=== PATIENT | female | born 1935 | race African-American/Black ===

== ENCOUNTER → 2017-01-20 13:06 | Outpatient (CLI) | payer MEDICARE ==
[2014-03-21 10:50] VITALS: BMI 22.0
[~2017-01-20 13:06] MED LIST: ALDACTONE25 MG PO; CENTRUM COMPLE1 EACH PO; CIPRO500 MG PO; CLARITIN 10 MG10 MG; COREG12.5 MG PO; ECOTRIN81 MG PO; FISH OIL 1,0001 CA1 PO; LASIX20 MG PO; LISINOPRIL5 MG PO; PLAVIX75 MG PO; VITAMIN B COMPL1 TAB PO
== END | disposition home or self-care (01) ==
LOC: D.CT 13:06
DX: R43.0 Anosmia (principal)

== ENCOUNTER 2020-01-11 16:29 | Emergency (ER) | payer OTHER ==
[~2020-01-11] VITALS: Ht 157.5 cm; Wt 52.3 kg
[2020-01-11 16:33] VITALS: BP 153/93; Ht 157.5 cm; Wt 52.3 kg
[2020-01-11 16:57] LABS: BASOPHILS 0.2 % (0-2); EOSINOPHILS 1.7 % (0-7); HEMATOCRIT 40.1 % (36.0-48.0); HEMOGLOBIN 13.4 g/dL (12-16); LYMPHOCYTES 42.9 % (15-50); MCH 30.7 pg (26.0-34.0); MCHC 33.4 g/dL (31.0-37.0); MCV 91.8 fL (80.0-100.0); MONOCYTES 5.1 % (2-11); NEUTROPHILS 50.1 % (40-80); PLATELET COUNT 197 10x3/uL (130-400); RBC 4.37 10x6/uL (4.00-5.40); RDW 15.6 % (11.5-14.5); WBC 5.9 10x3/uL (4.8-10.8)
[2020-01-11 17:08] LABS: ANION GAP 9.8 mmol/L (8-16); CALCIUM 8.8 mg/dL (8.5-10.1); CARBON DIOXIDE 29.6 mmol/L (21.0-32.0); CREATININE - SERUM 1.3 mg/dL (0.6-1.3); POTASSIUM - SERUM 4.4 mmol/L (3.5-5.1)
[2020-01-11 17:13] LABS: ALBUMIN 3.4 g/dL (3.4-5.0); BILIRUBIN - TOTAL 0.39 mg/dL (0.2-1.3); PROTEIN - SERUM 6.9 g/dL (6.4-8.2)
[2020-01-11] MEDS ORDERED: MECLIZINE HCL25 MG PO (17:26)
== END 2020-01-11 18:12 | disposition home or self-care (01) ==
LOC: D.ER 16:29
PROVIDERS: Emergency Medicine
DX: R42 Dizziness and giddiness (principal); I10 Essential (primary) hypertension; I25.119 Atherosclerotic heart disease of native coronary artery with unspecified angina pectoris; Z72.0 Tobacco use

== ENCOUNTER 2020-03-18 15:25 | Emergency (ER) | payer OTHER ==
[~2020-03-18] VITALS: Ht 157.5 cm; Wt 46.8 kg
[~2020-03-18 15:25] MED LIST changes: +MECLIZINE HCL25 MG PO
[2020-03-18 15:50] VITALS: Ht 157.5 cm; Wt 46.8 kg
[2020-03-18 18:41] LABS: BASOPHILS 0.1 % (0-2); EOSINOPHILS 1.6 % (0-7); HEMATOCRIT 43.1 % (36.0-48.0); HEMOGLOBIN 14.1 g/dL (12-16); IMMATURE GRANULOCYTES 0.1 % (0-5); LYMPHOCYTES 38.2 % (15-50); MCH 30.5 pg (26.0-34.0); MCHC 32.7 g/dL (31.0-37.0); MCV 93.3 fL (80.0-100.0); MEAN PLATELET VOLUME 9.3 fL (7.4-10.4); MONOCYTES 4.5 % (2-11); NEUTROPHILS 55.5 % (40-80); PLATELET COUNT 212 10x3/uL (130-400); RBC 4.62 10x6/uL (4.00-5.40); RDW 15.2 % (11.5-14.5); WBC 6.9 10x3/uL (4.8-10.8)
[2020-03-18 18:47] LABS: CALC OSMOLALITY 282 mosm/kg (275-300); CALCIUM 8.8 mg/dL (8.5-10.1); CARBON DIOXIDE 28.9 mmol/L (21.0-32.0); CHLORIDE - SERUM 106 mmol/L (98-107); CREATININE - SERUM 1.1 mg/dL (0.6-1.3); GLUCOSE 93 mg/dL (74-106); POTASSIUM - SERUM 3.5 mmol/L (3.5-5.1); SODIUM 142 mmol/L (136-145); UREA NITROGEN 12 mg/dL (7-18); eGFR NON AFRICAN AMERICAN 50 mL/min (90-120)
[2020-03-18 19:04] LABS: ALBUMIN 3.7 g/dL (3.4-5.0); ALKALINE PHOSPHATASE 54 U/L (30-120); ALT (SGPT) 15 U/L (10-68); BILIRUBIN - TOTAL 0.55 mg/dL (0.2-1.3); CKMB 0.7 U/L (0.0-3.6); CREATINE KINASE 56 UL (21-215); MAGNESIUM - SERUM 2.4 mg/dL (1.8-2.4); PROTEIN - SERUM 7.1 g/dL (6.4-8.2)
[2020-03-18 19:15] LABS: TROPONIN-I < 0.017 ng/mL (0.000-0.060)
[2020-03-18 19:42] LABS: BILIRUBIN NEGATIVE (NEGATIVE); GLUCOSE NEGATIVE (NEGATIVE); KETONE NEGATIVE (NEGATIVE); NITRITE NEGATIVE (NEGATIVE); UROBILINOGEN NORMAL (NORMAL)
[2020-03-18 19:44] LABS: BACTERIA MANY /hpf (NEGATIVE); EPITHELIAL CELLS 0-5 /hpf (0-5); WHITE CELLS - URINE 0-5 /hpf (NEGATIVE)
[2020-03-18] MEDS ORDERED: MACROBID100 MG PO (20:09)
[2020-03-18 20:34] VITALS: BP 122/73
== END 2020-03-18 20:34 | disposition home or self-care (01) ==
LOC: D.ER 15:25
PROVIDERS: Family Medicine
DX: N39.0 Urinary tract infection, site not specified (principal); R42 Dizziness and giddiness

== ENCOUNTER 2020-06-15 11:10 | Emergency (ER) | payer OTHER ==
[~2020-06-15] VITALS: Ht 157.5 cm; Wt 47.7 kg
[~2020-06-15 11:10] MED LIST changes: +MACROBID100 MG PO
[2020-06-15 11:14] VITALS: Ht 157.5 cm; Wt 47.7 kg
[2020-06-15 11:48] LABS: BASOPHILS 0.2 % (0-2); EOSINOPHILS 2.5 % (0-7); HEMATOCRIT 38.8 % (36.0-48.0); HEMOGLOBIN 12.6 g/dL (12-16); LYMPHOCYTES 37.8 % (15-50); MCH 30.1 pg (26.0-34.0); MCHC 32.5 g/dL (31.0-37.0); MCV 92.8 fL (80.0-100.0); MEAN PLATELET VOLUME 9.4 fL (7.4-10.4); MONOCYTES 4.4 % (2-11); NEUTROPHILS 55.1 % (40-80); PLATELET COUNT 215 10x3/uL (130-400); RBC 4.18 10x6/uL (4.00-5.40); RDW 15.2 % (11.5-14.5); WBC 4.8 10x3/uL (4.8-10.8)
[2020-06-15 12:07] LABS: APTT 27.5 SECONDS (22.8-39.4); INR 0.91 (0.85-1.17); PROTIME 12.2 SECONDS (11.6-15.0)
[2020-06-15 12:25] LABS: CALC OSMOLALITY 279 mosm/kg (275-300); CARBON DIOXIDE 29.8 mmol/L (21.0-32.0); CHLORIDE - SERUM 104 mmol/L (98-107); CREATININE - SERUM 1.2 mg/dL (0.6-1.3); GLUCOSE 125 mg/dL (74-106); POTASSIUM - SERUM 3.6 mmol/L (3.5-5.1); SODIUM 139 mmol/L (136-145); UREA NITROGEN 15 mg/dL (7-18); eGFR NON AFRICAN AMERICAN 45 mL/min (90-120)
[2020-06-15 12:42] LABS: ALBUMIN 3.4 g/dL (3.4-5.0); ALKALINE PHOSPHATASE 49 U/L (30-120); ALT (SGPT) 14 U/L (10-68); BILIRUBIN - TOTAL 0.57 mg/dL (0.2-1.3); CKMB 0.5 U/L (0.0-3.6); CREATINE KINASE 51 UL (21-215); PROTEIN - SERUM 6.2 g/dL (6.4-8.2); TROPONIN-I < 0.017 ng/mL (0.000-0.060)
[2020-06-15 13:03] LABS: BILIRUBIN NEGATIVE (NEGATIVE); GLUCOSE 500 mg/dL (NEGATIVE); KETONE NEGATIVE (NEGATIVE); NITRITE NEGATIVE (NEGATIVE); UROBILINOGEN NORMAL (NORMAL)
[2020-06-15] MEDS ORDERED: MECLIZINE HCL25 MG PO (13:07)
[2020-06-15 14:04] VITALS: BP 161/74
== END 2020-06-15 14:04 | disposition home or self-care (01) ==
LOC: D.ER 11:10
PROVIDERS: Family Medicine
DX: R42 Dizziness and giddiness (principal); I95.1 Orthostatic hypotension

== ENCOUNTER 2021-03-23 10:19 | Observation (INO) | payer OTHER ==
[~2021-03-23] VITALS: Ht 157.5 cm; Wt 40.8 kg
[2021-03-23 10:28] VITALS: BP 119/60
--- NOTE | 2021-03-23 10:31 | NUR ---
BGL OF 88
[2021-03-23 10:37] LABS: BASOPHILS 0.5 % (0-2); EOSINOPHILS 2.1 % (0-7); HEMATOCRIT 41.3 % (36.0-48.0); HEMOGLOBIN 13.7 g/dL (12-16); IMMATURE GRANULOCYTES 0.2 % (0-5); LYMPHOCYTE ABS# 1.59 10x3/uL (1.18-3.74); LYMPHOCYTES 37.1 % (15-50); MCH 30.4 pg (26.0-34.0); MCHC 33.2 g/dL (31.0-37.0); MCV 91.8 fL (80.0-100.0); MEAN PLATELET VOLUME 9.6 fL (7.4-10.4); MONOCYTES 7.5 % (2-11); NEUTROPHIL ABS# 2.26 10x3/uL (1.56-6.13); NEUTROPHILS 52.6 % (40-80); PLATELET COUNT 196 10x3/uL (130-400); RDW 15.1 % (11.5-14.5); WBC 4.3 10x3/uL (4.8-10.8)
[2021-03-23 11:01] LABS: CALC OSMOLALITY 283 mosm/kg (275-300); CARBON DIOXIDE 27.8 mmol/L (21.0-32.0); CHLORIDE - SERUM 104 mmol/L (98-107); CREATININE - SERUM 1.3 mg/dL (0.6-1.3); GLUCOSE 91 mg/dL (74-106); POTASSIUM - SERUM 3.4 mmol/L (3.5-5.1); SODIUM 142 mmol/L (136-145); UREA NITROGEN 16 mg/dL (7-18); eGFR NON AFRICAN AMERICAN 41 mL/min (90-120)
[2021-03-23 11:06] VITALS: BP 147/60
--- NOTE | 2021-03-23 11:06 | NUR ---
ASSITED UP TO BSC, URINE SPEC COLLECTED, LABELED AT BS AND SENT TO LAB
[2021-03-23 11:14] LABS: BILIRUBIN NEGATIVE (NEGATIVE); KETONE NEGATIVE (NEGATIVE); NITRITE NEGATIVE (NEGATIVE); UROBILINOGEN NORMAL mg/dL (< 2)
[2021-03-23 11:15] LABS: BACTERIA MODERATE HPF (NONE SEEN); SQUAMOUS EPITHELIAL 0-5 HPF (0-4)
[2021-03-23 11:16] LABS: ALBUMIN 3.5 g/dL (3.4-5.0); ALKALINE PHOSPHATASE 61 U/L (30-120); ALT (SGPT) 18 U/L (10-68); CKMB 1.1 U/L (0.0-3.6); CREATINE KINASE 78 UL (21-215); MAGNESIUM - SERUM 2.3 mg/dL (1.8-2.4); PROTEIN - SERUM 6.8 g/dL (6.4-8.2); TROPONIN-I < 0.017 ng/mL (0.000-0.060)
[2021-03-23 11:17] LABS: APTT 26.9 SECONDS (22.8-39.4); INR 0.99 (0.85-1.17); PROTIME 12.1 SECONDS (11.6-15.0)
[2021-03-23 13:00] VITALS: BP 132/75
[2021-03-23 13:52] LABS: CKMB 1.8 U/L (0.0-3.6); CREATINE KINASE 75 UL (21-215)
[2021-03-23 14:02] LABS: TROPONIN-I < 0.017 ng/mL (0.000-0.060)
--- NOTE | 2021-03-23 14:14 | NUR ---
PT REPORT GIVEN TO SYL ALONSO WITH VERBAL ACKNOWLEDGEMENT OBTAINED.
--- NOTE | 2021-03-23 14:16 | NUR ---
RECEIVED REPORT FROM ED, PATIENT TO UNIT SOON.
--- NOTE | 2021-03-23 14:26 | NUR ---
PATIENT ARRIVED TO UNIT AT THIS TIME VIA WHEELCHAIR AND ADMITTED TO ROOM 2125.
[2021-03-23 14:47] VITALS: BP 132/73; BMI 16.5
[2021-03-23 14:49] VITALS: BP 135/79
--- NOTE | 2021-03-23 15:27 | NUR ---
PATIENT RESTING COMFORTABLY IN BED WITH ATTENTION TOWARD TELEVISION. ECG COMPLETE AND PLACED ON CHART. NO DISTRESS.
--- NOTE | 2021-03-23 16:42 | NUR ---
BILATERAL SCDs APPLIED LOWER EXTREMITIES. TELEMETRY APPLIED.
--- NOTE | 2021-03-23 16:54 | NUR ---
PATIENTS GRANDDAUGHTER CALLED TO CHECK ON HER, UPDATE PROVIDED. PATIENT RESTING IN BED WITH EYES CLOSED. NO DISTRESS.
[2021-03-23 18:00] LABS: CKMB 1.1 U/L (0.0-3.6); CREATINE KINASE 67 UL (21-215)
[2021-03-23 18:02] LABS: TROPONIN-I < 0.017 ng/mL (0.000-0.060)
--- NOTE | 2021-03-23 18:39 | NUR ---
MULTIPLE FAMILY MEMBERS OF THE PATIENT ARE CALLING FOR UPDATE. UPDATE WAS PROVIDED TO THE GRANDDAUGHTER EARLIER. NO CHANGES HAVE OCCURED SINCE ADMISSION.
--- NOTE | 2021-03-23 18:40 | NUR ---
PATIENTS GRANDDAUGHTER JOSIE CALLED TO MAKE SURE HER CONTACT INFO IS CORRECT. HER CORRECT PHONE NUMBER IS [phone]. SHE WOULD LIKE TO BE CALLED IF ANY CHANGES OCCUR THROUGH THE NIGHT.
[2021-03-23 20:00] VITALS: BP 123/78
[2021-03-23 23:46] LABS: CREATINE KINASE 66 UL (21-215)
[2021-03-23 23:52] LABS: TROPONIN-I < 0.017 ng/mL (0.000-0.060)
[2021-03-24] VITALS: BP 154/79
--- NOTE | 2021-03-24 03:06 | NUR ---
I have reviewed this patient and I concur with the Shift Assessment completed by the Licensed Practical Nurse today this shift.
[2021-03-24 05:50] LABS: BASOPHILS 0.2 % (0-2); EOSINOPHILS 3.1 % (0-7); HEMATOCRIT 35.9 % (36.0-48.0); HEMOGLOBIN 11.9 g/dL (12-16); LYMPHOCYTE ABS# 1.91 10x3/uL (1.18-3.74); LYMPHOCYTES 41.9 % (15-50); MCH 30.4 pg (26.0-34.0); MCHC 33.1 g/dL (31.0-37.0); MCV 91.6 fL (80.0-100.0); MEAN PLATELET VOLUME 9.7 fL (7.4-10.4); MONOCYTES 5.7 % (2-11); NEUTROPHIL ABS# 2.24 10x3/uL (1.56-6.13); NEUTROPHILS 49.1 % (40-80); PLATELET COUNT 201 10x3/uL (130-400); RBC 3.92 10x6/uL (4.00-5.40); RDW 15.2 % (11.5-14.5); WBC 4.6 10x3/uL (4.8-10.8)
[2021-03-24 06:29] LABS: ALBUMIN 2.8 g/dL (3.4-5.0); ALKALINE PHOSPHATASE 47 U/L (30-120); BILIRUBIN - TOTAL 0.42 mg/dL (0.2-1.3); CALC OSMOLALITY 279 mosm/kg (275-300); CARBON DIOXIDE 25.3 mmol/L (21.0-32.0); CHLORIDE - SERUM 109 mmol/L (98-107); CKMB 0.9 U/L (0.0-3.6); CREATINE KINASE 57 UL (21-215); CREATININE - SERUM 1.1 mg/dL (0.6-1.3); GLUCOSE 85 mg/dL (74-106); POTASSIUM - SERUM 3.8 mmol/L (3.5-5.1); PROTEIN - SERUM 5.8 g/dL (6.4-8.2); SODIUM 141 mmol/L (136-145); TROPONIN-I < 0.017 ng/mL (0.000-0.060); UREA NITROGEN 12 mg/dL (7-18); eGFR NON AFRICAN AMERICAN 50 mL/min (90-120)
[2021-03-24 06:30] LABS: ALT (SGPT) 13 U/L (10-68)
--- NOTE | 2021-03-24 07:13 | NUR ---
RECEIVE SHIFT REPORT. RESTING IN BED WITH TV ON. DENIES ANY NEEDS AT THIS TIME. WILL CONTINUE POC AND SAFETY PRECAUTIONS.
[2021-03-24 08:23] VITALS: BP 133/76
[2021-03-24 10:59] LABS: CREATINE KINASE 72 UL (21-215); TROPONIN-I < 0.017 ng/mL (0.000-0.060)
[2021-03-24 12:22] VITALS: BP 148/78
[2021-03-24 16:04] VITALS: BP 148/81
[2021-03-24 20:56] VITALS: BP 145/73
[2021-03-25 01:48] VITALS: BP 126/64
--- NOTE | 2021-03-25 03:19 | NUR ---
I have reviewed this patient and I concur with the Shift Assessment completed by the Licensed Practical Nurse today this shift.
[2021-03-25 05:23] LABS: BASOPHILS 0.2 % (0-2); EOSINOPHILS 2.5 % (0-7); HEMATOCRIT 37.5 % (36.0-48.0); HEMOGLOBIN 12.4 g/dL (12-16); IMMATURE GRANULOCYTES 0.2 % (0-5); LYMPHOCYTE ABS# 2.01 10x3/uL (1.18-3.74); LYMPHOCYTES 42.4 % (15-50); MCH 30.3 pg (26.0-34.0); MCHC 33.1 g/dL (31.0-37.0); MCV 91.7 fL (80.0-100.0); MEAN PLATELET VOLUME 10.3 fL (7.4-10.4); MONOCYTES 5.7 % (2-11); NEUTROPHIL ABS# 2.32 10x3/uL (1.56-6.13); PLATELET COUNT 205 10x3/uL (130-400); RBC 4.09 10x6/uL (4.00-5.40); RDW 15.1 % (11.5-14.5); WBC 4.7 10x3/uL (4.8-10.8)
[2021-03-25 05:26] VITALS: BP 116/67
[2021-03-25 05:43] LABS: ALBUMIN 2.9 g/dL (3.4-5.0); ANION GAP 11.6 mmol/L (8-16); BILIRUBIN - TOTAL 0.31 mg/dL (0.2-1.3); CALCIUM 8.5 mg/dL (8.5-10.1); CARBON DIOXIDE 25.4 mmol/L (21.0-32.0); CREATININE - SERUM 1.1 mg/dL (0.6-1.3); MAGNESIUM - SERUM 2.1 mg/dL (1.8-2.4); PROTEIN - SERUM 6.1 g/dL (6.4-8.2)
--- NOTE | 2021-03-25 07:10 | NUR ---
RECEIVE SHIFT REPORT. RESTING IN BED WITH TV ON. DENIES ANY NEEDS AT THIS TIME. STATES SHE WOULD LIKE TO GO HOME. WILL CONTINUE POC AND SAFETY PRECAUTIONS. CALL LIGHT IN REACH.
[2021-03-25 07:32] VITALS: BP 135/70
[2021-03-25 11:37] VITALS: BP 128/68
[2021-03-25 13:40] VITALS: Ht 157.5 cm; Wt 40.8 kg
[2021-03-25 15:15] VITALS: BP 109/59
--- NOTE | 2021-03-25 19:54 | NUR ---
PT OUT IN [place], STATES THAT SHE IS LOOKING FOR THE BABY, EXPLAINED TO PT THAT SHE IS AT THE HOSPITAL AND THAT THERE IS NO BABY IN THE NEXT ROOM. ASSISTED PT BACK TO HER ROOM. IV TO RIGHT FOREARM OUT, TIP INTACT. RESITED IV TO UPPER RIGHT FOREARM, 20 GUAGE, FIRST ATTEMPT, PT TOLERATED WELL.
[2021-03-25 20:00] VITALS: BP 135/70
[2021-03-26] VITALS: BP 165/92
--- NOTE | 2021-03-26 04:44 | NUR ---
I have reviewed this patient and I concur with the Shift Assessment completed by the Licensed Practical Nurse today this shift.
[2021-03-26 07:02] LABS: BASOPHILS 0.2 % (0-2); EOSINOPHILS 2.6 % (0-7); HEMATOCRIT 40.6 % (36.0-48.0); HEMOGLOBIN 13.5 g/dL (12-16); IMMATURE GRANULOCYTES 0.2 % (0-5); LYMPHOCYTE ABS# 2.03 10x3/uL (1.18-3.74); LYMPHOCYTES 40.8 % (15-50); MCH 30.2 pg (26.0-34.0); MCHC 33.3 g/dL (31.0-37.0); MCV 90.8 fL (80.0-100.0); MEAN PLATELET VOLUME 9.7 fL (7.4-10.4); MONOCYTES 5.4 % (2-11); NEUTROPHIL ABS# 2.53 10x3/uL (1.56-6.13); NEUTROPHILS 50.8 % (40-80); PLATELET COUNT 212 10x3/uL (130-400); RBC 4.47 10x6/uL (4.00-5.40); RDW 14.9 % (11.5-14.5)
[2021-03-26 07:26] LABS: ALBUMIN 3.3 g/dL (3.4-5.0); ANION GAP 12.5 mmol/L (8-16); BILIRUBIN - TOTAL 0.38 mg/dL (0.2-1.3); CARBON DIOXIDE 26.9 mmol/L (21.0-32.0); CREATININE - SERUM 1.2 mg/dL (0.6-1.3); MAGNESIUM - SERUM 2.3 mg/dL (1.8-2.4); POTASSIUM - SERUM 4.4 mmol/L (3.5-5.1); PROTEIN - SERUM 6.3 g/dL (6.4-8.2)
[2021-03-26 08:06] VITALS: BP 125/60
[2021-03-26 12:07] VITALS: BP 128/58
--- NOTE | 2021-03-26 12:15 | EC ---
PATIENT:FAUSTINA WATKINS DATE OF SERVICE: 03/23/21 SEX: F MEDICAL RECORD: [id number] DATE OF : 35 LOCATION:D.M2 D.212 AGE OF PATIENT: 85 ADMISSION DATE: 03/23/21 REFERRING PHYSICIAN: INTERPRETING PHYSICIAN: ED MCNAMARA MD ECHOCARDIOGRAM REPORT ECHO CHARGES 4 ECHO COMPLETE Date: 03/24/21 CLINICAL DIAGNOSIS: PRESYNCOPE ECHOCARDIOGRAPHIC MEASUREMENTS (adult normal given) AC root (d.<3.7cm) 2.8 cm LV Septum d (<1.2 cm> 0.6 cm Valve Excursion 1.7 cm LV Septum (systole) 0.8 cm Left Atria (s.<4.0cm> 1.9 cm LVPW d(<1.2cm) 0.9 cm RV (d.<2.3cm) 1.9 cm LVPW (sytole) 1.0 cm LV diastole(<5.6CM) 6.3 cm MV E-F(>70mm/sec) cm LV systole 5.4 cm LVOT Diameter 1.9 cm MV exc.(>10mm) 1.5 cm Est.ejection fraction (50-75%) % DOPPLER: LVIT cm/sec A 93 cm/sec E 53 cm/sec LA cm/sec RVSP 27 mmHg LVOT 68 cm/sec AOP1/2T m/s Asc. Ao 114 cm/sec RVOT 54 cm/sec RA cm/sec PA 59 cm/sec AV Gradient Peak 5.2 mmHg AV Mean 2.7 mmHg AV Area 1.6 cm MV Gradient Peak 3.7 mmHg MV Mean 2.1 mmHg MV Area cm COMMENTS: Manager Of Administration: Tia ROWAN Corrugator Supervisor: 3 Dr. Post TAPE# Pericardial Effusion N DATE OF SERVICE: Adequate 2D, color flow imaging, spectral Doppler, and M-Mode. FINDINGS: No LVH. LV internal dimensions are normal. Wall motion is normal. EF is greater than or equal to 55%. Aortic valve is sclerotic. No evidence of stenosis by Doppler interrogation. Left atrium is normal. Mitral valve shows no prolapse. Mild MR. Right side is grossly normal. Mild TR. TRANSINT:[id number] Voice Confirmation ID: [id number] DOCUMENT ID: [id number] ECHOCARDIOGRAM REPORT [id number] FAUSTINA WATKINS ED MCNAMARA MD at 1215 CC: [id number] DICTATION DATE: 03/25/21 1338 ARGON TESTER: 03/25/21 1610 ADM IN [place] [address] [place] [address]
--- NOTE | 2021-03-26 15:32 | NUR ---
PATIENT PULLED OUT RIGHT FOREARM IV, TIP INTACT. WONDERING GARCIA TALKING ABOUT A BABY. REORIENTED AND TAKEN BACK TO ROOM. CALLED ACACIA HALL; STATES SHE IS OKAY TO DISCHARGE IF CASE MANAGEMENT HAS ARRANGED CARE FOR HER.
--- NOTE | 2021-03-26 15:39 | NUR ---
PATIENT WALKED 250 FEET WITHOUT ASST DEVICE INDEPENDENTLY IN GARCIA.
[2021-03-26 15:52] VITALS: BP 114/60
--- NOTE | 2021-03-26 23:12 | MORECARE ---
CASE MANAGEMENT DISCHARGE SUMMARY PATIENT: FAUSTINA WATKINS UNIT: [id number] ADM DATE: 03/23/21 AGE: 85 : 35 SEX: F ROOM/BED: D.2126 AUTHOR: ROSALINDADOC PHYSICIAN: REFERRING PHYSICIAN: CHEL STOVER MD DATE OF SERVICE: 03/26/21 Case Management Discharge Planning Summary DCP REVIEW SUMMARY ANTICIPATED D/C DATE: EXPECTED LOS : CASE STATUS: DCP Initiated INITIAL REVIEW: 03/23/2021 INITIAL REVIEWER: Shanel Contreras FINAL DISCHARGE DISPOSITION: : FINAL REVIEWER: FINAL REVIEW DATE: DCP [facility] Questions & Answers QUESTION: ANSWER : PATIENT: FAUSTINA WATKINS ENCOUNTER: [id number] MEDICAL RECORD#: [id number] ADMISSION DATE: 03/23/2021 DISCHARGE DATE: ATTENDING MD: JOLANTA STOVER : AGE: 85 MARITAL STATUS: W DC PLAN ID: [id number] FACILITY: [facility] PRINTED ON: 03/26/21 23:12 CT All edits/amendments must be made on the electronic document DICTATION DATE: 03/26/212311 SERVICES ACCOUNT MANAGER: DM 03/26/212311 RPT#: [id number] DC DATE: STATUS: ADM IN [facility] [address] [place] [address] END OF REPORT
--- NOTE | 2021-03-26 23:23 | MORECARE ---
CASE MANAGEMENT DISCHARGE SUMMARY PATIENT: FAUSTINA WATKINS UNIT: [id number] ADM DATE: 03/23/21 AGE: 85 : 35 SEX: F ROOM/BED: D.7442 AUTHOR: ROSALINDA,DOC PHYSICIAN: REFERRING PHYSICIAN: CHEL STOVER MD DATE OF SERVICE: 03/26/21 Case Management Discharge Planning Summary COMMENTS ENTERED DATE: 03/26/21 23:09 CT COMMENT TYPE: Discharge Planning REVIEWER: Shanel Contreras CM was notified that family is requesting HHS upon discharge. CM went and spoke with patient an she states that she lives at home with her Granddaughter and her baby. She states that she cares for them. She still cooks and cleans and cares for the children. CM asked if she was interested in HHS services and she stated sure they can come out and keep her company. MERYL completed. CM faxed records to [facility]. Goldy stated that they have availability for Wednesday. CM anticipates discharge this evening. CM will continue to follow and assist as needed. DCP REVIEW SUMMARY ANTICIPATED D/C DATE: EXPECTED LOS : CASE STATUS: DCP Initiated INITIAL REVIEW: 03/23/2021 INITIAL REVIEWER: Shanel Contreras FINAL DISCHARGE DISPOSITION: : FINAL REVIEWER: FINAL REVIEW DATE: DCP [facility] Questions & Answers QUESTION: ANSWER : PATIENT: FAUSTINA WATKINS ENCOUNTER: [id number] MEDICAL RECORD#: [id number] ADMISSION DATE: 03/23/2021 DISCHARGE DATE: ATTENDING MD: JOLANTA STOVER : AGE: 85 MARITAL STATUS: W DC PLAN ID: [id number] FACILITY: [facility] PRINTED ON: 03/26/21 23:23 CT All edits/amendments must be made on the electronic document DICTATION DATE: 03/26/212322 SAND ANALYST: JAYLEN 03/26/212322 RPT#: [id number] DC DATE: STATUS: ADM IN [facility] [address] [place] [address] END OF REPORT
[2021-03-26 23:28] VITALS: BP 123/71
[2021-03-27] VITALS: BP 108/63
--- NOTE | 2021-03-27 01:39 | NUR ---
I have reviewed this patient and I concur with the Shift Assessment completed by the Licensed Practical Nurse today this shift.
[2021-03-27 04:00] VITALS: BP 98/53
[2021-03-27 07:35] LABS: BASOPHILS 0.2 % (0-2); EOSINOPHILS 3.6 % (0-7); HEMATOCRIT 37.6 % (36.0-48.0); HEMOGLOBIN 12.4 g/dL (12-16); LYMPHOCYTE ABS# 1.64 10x3/uL (1.18-3.74); LYMPHOCYTES 36.9 % (15-50); MCH 30.1 pg (26.0-34.0); MCV 91.3 fL (80.0-100.0); MEAN PLATELET VOLUME 10.2 fL (7.4-10.4); MONOCYTES 6.1 % (2-11); NEUTROPHIL ABS# 2.37 10x3/uL (1.56-6.13); NEUTROPHILS 53.2 % (40-80); PLATELET COUNT 196 10x3/uL (130-400); RBC 4.12 10x6/uL (4.00-5.40); RDW 15.1 % (11.5-14.5); WBC 4.5 10x3/uL (4.8-10.8)
[2021-03-27 07:57] LABS: ANION GAP 11.2 mmol/L (8-16); BILIRUBIN - TOTAL 0.34 mg/dL (0.2-1.3); CALCIUM 8.8 mg/dL (8.5-10.1); CARBON DIOXIDE 27.2 mmol/L (21.0-32.0); CREATININE - SERUM 1.1 mg/dL (0.6-1.3); MAGNESIUM - SERUM 2.4 mg/dL (1.8-2.4); POTASSIUM - SERUM 4.4 mmol/L (3.5-5.1); PROTEIN - SERUM 5.7 g/dL (6.4-8.2)
[2021-03-27 08:22] VITALS: BP 115/66
--- NOTE | 2021-03-27 10:35 | NUR ---
PATIENT AAOX3 RESP EVEN AND NON LABORED, NO S/S OF DISTRESS, MEDICATIONS ADMINISTERED WITH NO COMPLICATIONS, NO FURTHER NEEDS AT THIS MOMENT, CLIR, BLP
[2021-03-27] MEDS ORDERED: SEROQUEL25 MG PO (11:13)
[2021-03-27] MEDS ORDERED: NICODERM CQ1 EAC3 TRANSDERM (11:13)
[2021-03-27] MEDS ORDERED: MECLIZINE HCL25 MG PO (11:14)
[2021-03-27] MEDS ORDERED: OMNICEF300 MG PO (11:14)
--- NOTE | 2021-03-27 12:26 | MORECARE ---
CASE MANAGEMENT DISCHARGE SUMMARY PATIENT: FAUSTINA WATKINS UNIT: [id number] ADM DATE: 03/23/21 AGE: 85 : 35 SEX: F ROOM/BED: D.2126 AUTHOR: ROSALINDA,DOC PHYSICIAN: REFERRING PHYSICIAN: CHEL STOVER MD DATE OF SERVICE: 03/27/21 Case Management Discharge Planning Summary COMMENTS ENTERED DATE: 03/27/21 12:13 CT COMMENT TYPE: Discharge Planning REVIEWER: Keely Manuel notified [facility] with [facility] of discharge. DC med list and order faxed. ENTERED DATE: 03/26/21 23:09 CT COMMENT TYPE: Discharge Planning REVIEWER: Shanel Contreras CM was notified that family is requesting HHS upon discharge. CM went and spoke with patient an she states that she lives at home with her Granddaughter and her baby. She states that she cares for them. She still cooks and cleans and cares for the children. CM asked if she was interested in [facility] services and she stated sure they can come out and keep her company. MERYL completed. CM faxed records to [facility]. Goldy stated that they have availability for Wednesday. CM anticipates discharge this evening. CM will continue to follow and assist as needed. WVP REVIEW SUMMARY ANTICIPATED D/C DATE: EXPECTED LOS : CASE STATUS: DCP Initiated INITIAL REVIEW: 03/23/2021 INITIAL REVIEWER: Shanel Contreras FINAL DISCHARGE DISPOSITION: : FINAL REVIEWER: FINAL REVIEW DATE: [facility] Focus Questions & Answers QUESTION: ANSWER : PATIENT: FAUSTINA WATKINS ENCOUNTER: [id number] MEDICAL RECORD#: [id number] ADMISSION DATE: 03/23/2021 DISCHARGE DATE: ATTENDING MD: JOLANTA STOVER : AGE: 85 MARITAL STATUS: W DC PLAN ID: [id number] FACILITY: [facility] PRINTED ON: 03/27/21 12:25 CT All edits/amendments must be made on the electronic document DICTATION DATE: 03/27/21 1225 LOOSELEAF BINDER COVERER: JAYLEN 03/27/21 1225 RPT#: [id number] DC DATE: STATUS: ADM IN [facility] [address] [place] [address] END OF REPORT
--- NOTE | 2021-03-27 13:02 | NUR ---
I have reviewed this patient and I concur with the Shift Assessment completed by the Licensed Practical Nurse today this shift.
--- NOTE | 2021-03-27 13:24 | MORECARE ---
CASE MANAGEMENT DISCHARGE SUMMARY PATIENT: FAUSTINA WATKINS UNIT: [id number] ADM DATE: 03/23/21 AGE: 85 : 35 SEX: F ROOM/BED: D.2126 AUTHOR: ROSALINDA,DOC PHYSICIAN: REFERRING PHYSICIAN: CHEL STOVER MD DATE OF SERVICE: 03/27/21 Case Management Discharge Planning Summary COMMENTS ENTERED DATE: 03/27/21 12:13 CT COMMENT TYPE: Discharge Planning REVIEWER: Keely Manuel notified [facility] with [facility] of discharge. DC med list and order faxed. ENTERED DATE: 03/26/21 23:09 CT COMMENT TYPE: Discharge Planning REVIEWER: Shanel Contreras CM was notified that family is requesting HHS upon discharge. CM went and spoke with patient an she states that she lives at home with her Granddaughter and her baby. She states that she cares for them. She still cooks and cleans and cares for the children. CM asked if she was interested in [facility] services and she stated sure they can come out and keep her company. MERYL completed. CM faxed records to [facility]. Goldy stated that they have availability for Wednesday. CM anticipates discharge this evening. CM will continue to follow and assist as needed. DCP REVIEW SUMMARY ANTICIPATED D/C DATE: EXPECTED LOS : CASE STATUS: DCP Initiated INITIAL REVIEW: 03/23/2021 INITIAL REVIEWER: Shanel Contreras FINAL DISCHARGE DISPOSITION: : FINAL REVIEWER: FINAL REVIEW DATE: [facility] Focus Questions & Answers QUESTION: ANSWER : PATIENT: FAUSTINA WATKINS ENCOUNTER: [id number] MEDICAL RECORD#: [id number] ADMISSION DATE: 03/23/2021 DISCHARGE DATE: 03/27/2021 ATTENDING MD: JOLANTA STOVRE : AGE: 85 MARITAL STATUS: W DC PLAN ID: [id number] FACILITY: [facility] PRINTED ON: 03/27/21 13:24 CT All edits/amendments must be made on the electronic document DICTATION DATE: 03/27/21 1324 INTERMISSION COORDINATOR: JAYLEN 03/27/21 1324 RPT#: [id number] DC DATE:03/27/21 STATUS: DIS IN [facility] [address] [place] [address] END OF REPORT
== END 2021-03-27 13:21 | disposition home or self-care (01) ==
LOC: D.ER 10:19 → D.M2 14:01 → OBSVTIME 14:01 → D.M2 14:01
PROVIDERS: Family Medicine; ADMIT Family Medicine; ATTEND Family Medicine
DX: R42 Dizziness and giddiness (principal); R00.2 Palpitations; E78.5 Hyperlipidemia, unspecified; I44.0 Atrioventricular block, first degree; E86.0 Dehydration; N39.0 Urinary tract infection, site not specified; H61.23 Impacted cerumen, bilateral; E87.6 Hypokalemia; I95.1 Orthostatic hypotension; I25.10 Atherosclerotic heart disease of native coronary artery without angina pectoris; I25.5 Ischemic cardiomyopathy